=== PATIENT | female | born 1985 | race Caucasian/White ===

== ENCOUNTER → 2021-11-27 11:10 | Outpatient (CLI) | payer OTHER, SELFPAY ==
--- NOTE | 2021-11-27 11:13 | DI.MRI.S_ITS ---
PROCEDURE: MR LUMBAR SPINE WO CON INDICATIONS: Low back pain, unspecified TECHNIQUE: Noncontrast sagittal T1 spin echo and T2 fast echo, sagittal STIR, and T2 fast spin echo through the lumbar spine. In cases with scoliosis, additional coronal T2 fast spin echo may be performed. COMPARISON: [facility], CR, XR LUMBAR SPINE WITH OBLIQUES PLUS FLEXION EXTENSION, 10/30/2021, 15:31. FINDINGS: Image quality: Excellent. Alignment and Curvature: There is normal bony alignment. Bone Marrow: Marrow is of normal overall signal. No acute vertebral body compression fractures. Spinal Cord: Conus medullaris terminates at the top of L2 level. Visualized cord demonstrates normal signal and size. Paraspinous Soft Tissues: No paravertebral masses. T12-L1: No canal stenosis or foraminal stenosis. L1-L2: No canal stenosis or foraminal stenosis. L2-L3: No canal stenosis or foraminal stenosis. L3-L4: Mild disc bulge. Facet hypertrophy. No central canal stenosis. Right foramen is patent. Focal broad-based shallow left foraminal disc protrusion with increased signal potentially suggesting acuity. This mildly narrows the left foramen. Additionally, there is a far left lateral protrusion which abuts the left L3 nerve root far laterally, and may potentially result in a left L3 radiculitis. L4-L5: Diffuse disc bulge. Facet hypertrophy. No canal stenosis. Mild bilateral foraminal stenosis. L5-S1: Minimal disc bulge. Facet hypertrophy. No canal stenosis. Mild bilateral foraminal stenosis. IMPRESSION: 1. There is multilevel facet arthropathy. There multilevel disc bulges. There is no central canal stenosis. 2. At L3-L4, there is a probably acute shallow broad-based left foraminal disc protrusion and a far left lateral disc protrusion which may potentially result in a left L3 radiculitis. Dictated by: Oneal Fonseca M.D. on 11/27/2021 at 12:10 Approved by: Oneal Fonseca M.D. on 11/27/2021 at 13:27
== END ==
PROVIDERS: Referring Provider Physical Medicine & Rehabilitation Pain Medicine; Visit Provider Physical Medicine & Rehabilitation Pain Medicine
DX: M47.816 Spondylosis without myelopathy or radiculopathy, lumbar region (principal); M47.817 Spondylosis without myelopathy or radiculopathy, lumbosacral region; M51.26 Other intervertebral disc displacement, lumbar region
CPT/HCPCS: 72148